=== PATIENT | female | born 1945 | race Caucasian/White ===

== ENCOUNTER → 2018-01-17 | Outpatient (CLI) | payer OTHER ==
[~2018-01-17] MED LIST: ASPIR 8181 MG PO; CITRACAL + D E1 EACH PO; FISH OIL 1,001000 M2 PO; FLAX OIL1000 MG PO; KLONOPIN2 MG NG; LAMICTAL100 MG PO; LISINOPRIL10 MG PO; PRISTIQ100 MG PO
== END ==
LOC: M.RAD 11:09
DX: Z12.31 Encounter for screening mammogram for malignant neoplasm of breast (principal)

== ENCOUNTER → 2019-03-15 | Outpatient (CLI) | payer OTHER | LOC: M.RAD 11:45 | DX: Z12.31 Encounter for screening mammogram for malignant neoplasm of breast (principal) ==

== ENCOUNTER → 2020-05-24 | Outpatient (CLI) | payer OTHER | LOC: M.RAD 13:04 | PROVIDERS: ATTEND Student in an Organized Health Care Education/Training Program | DX: Z12.31 Encounter for screening mammogram for malignant neoplasm of breast (principal) ==

== ENCOUNTER 2021-02-20 07:44 | Emergency (ER) | payer OTHER ==
[~2021-02-20] VITALS: Ht 167.6 cm; Wt 58.5 kg
[2021-02-20 09:09] VITALS: BP 123/76
== END 2021-02-20 09:10 | disposition home or self-care (01) ==
LOC: M.ERS 07:44
DX: S00.93XA Contusion of unspecified part of head, initial encounter (principal); T24.211A Burn of second degree of right thigh, initial encounter; I10 Essential (primary) hypertension; Z79.899 Other long term (current) drug therapy; Z79.82 Long term (current) use of aspirin; Z88.0 Allergy status to penicillin; W22.8XXA Striking against or struck by other objects, initial encounter; X10.0XXA Contact with hot drinks, initial encounter; Y93.89 Activity, other specified; Y92.89 Other specified places as the place of occurrence of the external cause; Y99.8 Other external cause status

== ENCOUNTER → 2021-05-19 | Outpatient (CLI) | payer OTHER | LOC: M.RAD 11:36 | PROVIDERS: ATTEND Student in an Organized Health Care Education/Training Program | DX: Z12.31 Encounter for screening mammogram for malignant neoplasm of breast (principal); N64.89 Other specified disorders of breast ==